=== PATIENT | female | born 1985 | race Two or more races ===

== ENCOUNTER 2017-06-28 03:32 | Emergency (ER) | payer OTHER ==
[~2017-06-28] VITALS: Ht 160 cm; Wt 47.6 kg
[2017-06-28] MEDS ORDERED: ACETAMINOPHEN 325 MG TAB PO ONE ×2 (03:47→04:00)
[2017-06-28 03:50] VITALS: BP 116/76
[2017-06-28 04:25] LABS: Urine Bacteria FEW /hpf (None Seen); Urine Blood Negative /uL (Negative); Urine Mucus FEW (None Seen); Urine Specific Gravity 1.019 (1.001-1.035); Urine WBC 9 /hpf (0 - 5)
== END 2017-06-28 07:15 | disposition left against medical advice (07) ==
LOC: ER 03:35
DX: R50.9 Fever, unspecified (principal); Z53.21 Procedure and treatment not carried out due to patient leaving prior to being seen by health care provider
CPT/HCPCS: 81001

== ENCOUNTER 2017-06-28 15:56 | Emergency (ER) | payer OTHER ==
[~2017-06-28] VITALS: Ht 160 cm; Wt 47.6 kg
[2017-06-28] MEDS ORDERED: ACETAMINOPHEN 325 MG TAB PO ONE (16:15)
[2017-06-28] MEDS ORDERED: SODIUM CHLORIDE 0.9% 1,000 ML IV ONE (16:30)
[2017-06-28 16:39] LABS: Basophils # (auto) 0 uL; Basophils % (auto) 0.3 % (0.0-2.0); Eosinophils # (auto) 0 uL; Eosinophils % (auto) 0.1 % (0.0-7.0); Hematocrit 39.2 % (36.0-46.0); Hemoglobin 13.1 g/dL (12.2-16.2); Lymphocytes # (auto) 0.8 uL; Lymphocytes % (auto) 6.4 % (10.0-50.0); Mean Corpuscular Hemoglobin 31.8 pg (28.0-32.0); Mean Corpuscular Hgb Conc. 33.5 g/dL (32.0-36.0); Mean Corpuscular Volume 94.8 fL (80.0-100.0); Monocytes # (auto) 1.3 uL; Monocytes % (auto) 10.4 % (0.0-12.0); Neutrophils # (auto) 10.7 uL; Neutrophils % (auto) 82.8 % (37.0-80.0); Platelet Count (auto) 268 10^3/uL (140-450); Red Blood Cells 4.14 10^6/uL (4.0-5.20); White Blood Cell 12.9 10^3/uL (4.4-10.8)
[2017-06-28 16:57] LABS: Albumin 3.8 g/dL (3.4-5.0); BUN/Creatinine Ratio 12.9; Calcium 8.8 mg/dL (8.5-10.1); Potassium 3.7 mmol/L (3.5-5.1)
[2017-06-28 17:00] LABS: Bilirubin, Total 0.8 mg/dL (0.2-1.0); Total Protein 8.1 g/dL (6.4-8.2)
[2017-06-28 17:41] VITALS: BP 112/52
[2017-06-28] MEDS ORDERED: cefTRIAXone 1GM/10ml IVPUSH 10 ML IV ONE (20:00)
[2017-06-28 20:39] LABS: Urine Bacteria FEW /hpf (None Seen); Urine Blood TRACE /uL (Negative); Urine Mucus FEW (None Seen); Urine Specific Gravity 1.019 (1.001-1.035); Urine WBC 11 /hpf (0 - 5)
[2017-06-28] MEDS ORDERED: IBUPROFEN 600 MG TAB PO ONE (21:15)
== END 2017-06-28 22:34 | disposition home or self-care (01) ==
LOC: ER 15:56
DX: N39.0 Urinary tract infection, site not specified (principal)
CPT/HCPCS: 36415; 80053; 81001; 81025; 85025; 96361; 96374